=== PATIENT | male | born 1985 | race Caucasian/White ===

== ENCOUNTER 2018-03-16 16:19 | Outpatient (CLI) | payer BC ==
--- NOTE | 2018-03-16 17:37 | RAD ---
CHEST 2 VIEWS: Date: 03/16/18 HISTORY: Primary spontaneous pneumothorax. COMPARISON: None. FINDINGS: There is a right-sided chest tube. Small right-sided pneumothorax is noted. No significant cardiomedi astinal shift. Adequate aeration of the lung parenchyma. Normal cardiac silhouette. IMPRESSION: Right-sided chest tube. Small right-sided pneumothorax. POS: [facility]
== END 2018-03-16 16:20 | disposition home or self-care (01) ==
LOC: RAD 16:19
PROVIDERS: ATTEND Thoracic Surgery (Cardiothoracic Vascular Surgery)
DX: J93.11 Primary spontaneous pneumothorax (principal)
CPT/HCPCS: 71046

== ENCOUNTER 2018-03-18 14:15 | Outpatient (CLI) | payer BC ==
--- NOTE | 2018-03-18 15:22 | RAD ---
TWO VIEWS CHEST: DATE: 03/18/18. PROVIDED CLINICAL HISTORY: Spontaneous pneumothorax. FINDINGS: Comparison 03/16/18. Right-sided chest tube is redemonstrated. There is a small persistent right api robbie pneumothorax. This appears decreased in size with respect to the prior study. Lungs appear othe rwise clear. No pleural fluid evident. IMPRESSION: Persistent small right-sided pneumothorax. POS: [facility]
== END 2018-03-18 14:16 | disposition home or self-care (01) ==
LOC: RAD 14:15
PROVIDERS: ATTEND Thoracic Surgery (Cardiothoracic Vascular Surgery)
DX: J93.11 Primary spontaneous pneumothorax (principal)
CPT/HCPCS: 71046

== ENCOUNTER 2019-01-20 14:01 | Outpatient (CLI) | payer BC ==
--- NOTE | 2019-01-20 15:02 | RAD ---
PA AND LATERAL CHEST: History: Recurrent spontaneous pneumothorax. Comparison: 03-18-18 FINDINGS: Heart size is within normal limits. A right chest tube is seen. The tip is seen along the right apex. I do not see a definite pneumothorax on this film. Lungs are clear of any infiltrative process. IMPRESSION: Right chest tube in place. No signs of pneumothorax. POS: [facility]
== END 2019-01-20 14:02 | disposition home or self-care (01) ==
LOC: RAD 14:01
PROVIDERS: ATTEND Thoracic Surgery (Cardiothoracic Vascular Surgery)
DX: J93.83 Other pneumothorax (principal)
CPT/HCPCS: 71046